=== PATIENT | female | born 1960 | race Caucasian/White ===

== ENCOUNTER 2016-08-03 14:24 | Inpatient (IN) | payer MEDICARE ==
[2016-08-03] MEDS ORDERED: IPRATROPIUM/ALBUTEROL 3 ML VIAL INH ONE (14:47)
[2016-08-03] MEDS ORDERED: SODIUM CHLORIDE 0.9% (FLUSH) 10 ML SYG IV PRN ×2 (14:47→18:26)
--- NOTE | 2016-08-03 14:51 | ED.PDOC ---
History of Present Illness - General Chief Complaint: Respiratory Problem Stated Complaint: ear pain,dental pain,sore throat,cough Time Seen by Provider: 08/03/16 14:47 Source: patient, family Exam Limitations: no limitations - History of Present Illness Initial Comments: PT REPORTS 4-5 DAY HISTORY OF SOB, COUGH, NASAL CONGESTION, EAR PAIN. PT REPORTS COUGH IS PRODUCTIVE OF YELLOW SPUTUM AND REPORTS SUBJECTIVE FEVER. Timing/Duration: days - 4-5 Severity: moderate Activities at Onset: none Possible Cause: frequent episodes, smoke exposure Improving Factors: nothing Worsening Factors: movement Associated Symptoms: cough, fever, wheezing Allergies/Adverse Reactions: Allergies Flu Virus Vaccine Allergy (Mild, Verified 06/26/16 13:02) Rash Levofloxacin [From Levaquin] Allergy (Unknown, Verified 06/26/16 13:02) Home Medications: Ambulatory Orders Aspirin [Aspirin Adult Low Dose] 81 mg PO DAILY 08/03/16 Furosemide [Lasix] 40 mg PO DAILY 08/03/16 Losartan Potassium & Hydrochlo [Losartan Potassium/Hydroc 100-25 mg] 1 tab PO DAILY 08/03/16 Potassium Chloride [Micro-K] 8 meq PO DAILY 08/03/16 Review of Systems - Review of Systems Constitutional: States: chills, fever EENTM: States: ear pain. Denies: throat pain Respiratory: States: see HPI, cough, short of breath, wheezing Cardiology: Denies: chest pain, palpitations Gastrointestinal/Abdominal: Denies: abdominal pain, nausea, vomiting Genitourinary: Denies: discharge, dysuria Musculoskeletal: Denies: back pain, joint pain Skin: Denies: change in color, lesions Neurological: States: no symptoms reported Endocrine: States: no symptoms reported Hematologic/Lymphatic: States: no symptoms reported Past Medical History (General) - Patient Medical History Hx Seizures: No Hx Stroke: Yes Hx Dementia: No Hx Asthma: No Hx of COPD: Yes Hx Cardiac Disorders: No Hx Congestive Heart Failure: Yes Hx Pacemaker: No Hx Hypertension: Yes Hx Thyroid Disease: No Hx Diabetes: No Hx Gastroesophageal Reflux: No Hx Renal Disease: No Hx Cancer: No Hx of HIV: No Hx Hepatitis C: No Hx MRSA: No MRSA Source:: Wound Surgical History: appendectomy, cholecystectomy, Hysterectomy - Vaccination History Hx Tetanus, Diphtheria Vaccination: No Hx Influenza Vaccination: No Hx Pneumococcal Vaccination: No - Social History Hx Tobacco Use: Yes Hx Chewing Tobacco Use: No Hx Alcohol Use: No Hx Substance Use: No Hx Substance Use Treatment: No Hx Depression: No Hx Physical Abuse: No Hx Emotional Abuse: No Hx Suspected Abuse: No - Female History Patient : No Family Medical History - Family History Mother Living Status: Hx Family Hypertension: Yes Hx Family Stroke: Yes Hx Cardiac Disease: Yes Father Family History: No Known Living Status: Hx Family Asthma: No Hx Family Congestive Heart Failure: No Hx Family Hypertension: No Hx Family Stroke: Yes Hx Cardiac Disease: Yes Hx Family;Other: heart attack Physical Exam - Physical Exam General Appearance: Alert, Ill Appearing Eyes, Ears, Nose, Throat Exam: PERRL/EOMI Neck: non-tender, normal inspection Respiratory: respiratory distress - MILD, wheezing Cardiovascular/Chest: regular rate, rhythm, no murmur Gastrointestinal/Abdominal: non tender, soft Extremity: non-tender, pedal edema - 1-2+ B/L LE Neurologic: normal mood/affect, oriented x 3 Skin Exam: warm/dry, pallor Progress - Progress Progress: 08/03/16 16:13 ONLY MINIMAL IMPROVEMENT IN WHEEZING AFTER INITIAL DUONEB. ADDITIONAL DUONEB ORDERED ALONG WITH IV SOLU MEDROL AND IV ZITHROMAX. WILL ADMIT FOR FURTHER TREATMENT. - Results/Orders Results/Orders: Laboratory Tests 08/03/16 15:00 WBC 7.9 RBC 4.44 Hgb 13.3 Hct 40.1 MCV 90.2 MCH 30.0 MCHC 33.2 RDW 14.8 H Plt Count 204 MPV 6.6 L Absolute Neuts (auto) 5.50 Absolute Lymphs (auto) 1.70 Absolute Monos (auto) 0.50 Absolute Eos (auto) 0.20 Absolute Basos (auto) 0.10 Neutrophils % 69.1 Lymphocytes % 21.7 Monocytes % 6.0 Eosinophils % 2.4 Basophils % 0.8 Sodium 135 Potassium 3.2 L Chloride 97 L Carbon Dioxide 32 H Anion Gap 9.2 L BUN 14 Creatinine 0.71 BUN/Creatinine Ratio 19.7 Random Glucose 124 H Serum Osmolality 272.0 L Calcium 9.4 Total Bilirubin 0.6 AST 27 ALT 26 Alkaline Phosphatase 104 B-Natriuretic Peptide 22.7 Serum Total Protein 7.1 Albumin 3.4 Globulin 3.7 H Albumin/Globulin Ratio 0.9 L - EKG/XRAY/CT EKG: Tachy, no ST T wave changes Comments: 105BPM, NL INTERVALS, NL AXIS, NO OLD EKG FOR COMPARISON Departure - Departure Clinical Impression: Acute bronchitis, COPD exacerbation Time of Disposition: 16:16 Disposition: Admit Patient Condition: Fair Departure Forms: ED Discharge - Pt. Copy, Patient Portal Self Enrollment Home Medications: Ambulatory Orders Aspirin [Aspirin Adult Low Dose] 81 mg PO DAILY 08/03/16 Furosemide [Lasix] 40 mg PO DAILY 08/03/16 Losartan Potassium & Hydrochlo [Losartan Potassium/Hydroc 100-25 mg] 1 tab PO DAILY 08/03/16 Potassium Chloride [Micro-K] 8 meq PO DAILY 08/03/16 Decision To Admit - Decistion To Admit Decision to Admit Reason: Admit from ER Decision to Admit Date: 08/03/16 - CASE DISCUSSED WITH THU WAGGONER WHO AGREES TO ADMIT PT. Decision to Admit Time: 16:16
--- NOTE | 2016-08-03 15:23 | RAD ---
EXAM DESCRIPTION: XR CHEST 1 VIEW CLINICAL HISTORY: SOB COMPARISON: 27 June 2016 TECHNIQUE: AP portable chest FINDINGS: The lungs are clear. The heart is within the range of normal. A right shoulder arthroplasty is observed. Exam reveals a anchor in the soft tissues medial to the right proximal humerus. IMPRESSION: Unremarkable portable chest. Electronically signed by: Rigo Oneil MD 08/03/2016 15:22
[2016-08-03] MEDS ORDERED: IPRATROPIUM/ALBUTEROL 3 ML VIAL NEB ONE (15:39)
[2016-08-03] MEDS ORDERED: AZITHROMYCIN IV 500 MG in SODIUM CHLORIDE 0.9% 250ML 250 ML IVPB ONE (15:39)
[2016-08-03] MEDS ORDERED: methylPREDNISolone SODIUM SUC 125 MG/2 ML VIAL IV ONE (15:39)
--- NOTE | 2016-08-03 17:09 | HP ---
SUPERVISING PHYSICIAN: Desmond Mirza M.D. CHIEF COMPLAINT: Worsening shortness of breath, ear and sinus pain. HISTORY OF PRESENT ILLNESS: Ms. Beverly is a 55 year-old female patient that presented to the E. . on date of admission complaining of a 4 to 5 day history of shortness of breath with worsening in the last 24 hours with a productive cough with increasing purulent sputum production with notable nasal congestion and left ear pain. She reports a subjective fever and worsening of her shortness of breath resulting in increasing dyspnea with exertion. The patient does have a history of congestive heart failure and chronic obstructive pulmonary disease. In the Emergency Department, white count was found to be normal with the patient having both inspiratory and expiratory wheezing. Had minimal response with DuoNeb treatments. Given the patient's symptomology with worsening shortness of breath and productive cough, the patient is to be admitted for continued evaluation and treatment for acute exacerbation of chronic obstructive pulmonary disease with bronchitis and concern for early pneumonia. She was admitted in stable condition. PAST MEDICAL HISTORY: 1. Chronic congestive heart failure with last ejection fraction 60% with a diastolic dysfunction noted on 03/2014 as well as pulmonary hypertension. 2. Hypertension. 3. Hepatitis C diagnosed in 2001. 4. Chronic pain. 5. Depression. 6. Chronic obstructive pulmonary disease. PAST SURGICAL HISTORY: 1. Appendectomy. 2. Cholecystectomy. 3. Hysterectomy. 4. Rotator cuff right shoulder. 5. Carpal tunnel repair. CURRENT MEDICATIONS: 1. Aspirin 81 mg daily. 2. Potassium chloride 8 mEq daily. 3. Losartan Hydrochlorothiazide 1 tablet daily. 4. Lasix 40 mg daily. ALLERGIES: FLU VACCINE AND LEVOFLOXACIN. FAMILY HISTORY: Mother is at age 79 from stroke. Father is at age 44 from myocardial infarction. SOCIAL HISTORY: The patient does smoke 1/2 pack a day and has since age 12. She denies any alcohol or illicit drug use. She is currently disabled and , and lives in [place], [place]. REVIEW OF SYSTEMS: CONSTITUTIONAL: Notable for chills and fever. Also noted weight gain of 30 pounds since May. HEENT: Notes left ear pain and sore throat with tooth ache. RESPIRATORY: As noted in History of Present Illness. Cough, shortness of breath and wheezing. CARDIOVASCULAR: Denies any chest pains , palpitations or syncopal episodes. ABDOMEN: Denies any abdominal pain, nausea or vomiting, diarrhea or constipation. GENITOURINARY: Denies any discharges, dysuria or other urinary symptoms. NEUROLOGIC: Denies any headaches , migraines, syncopal episodes or dizziness. PHYSICAL EXAMINATION: VITAL SIGNS: Temperature 99, heart rate 116, blood pressure 185/89, respirations 24, O2 sat showing 97% on room air. Admission weight is 117.9 kg. GENERAL: The patient is alert, appears tired but is in no acute distress. HEENT: Tympanic membranes are clear bilaterally. Oropharynx is pink, moist without any lesions. NECK: There is no jugular venous distention. CHEST: Notable for some mild wheezing throughout more notable on expiratory phase and diminished breath sounds towards the bases. No rhonchi or rales. CARDIOVASCULAR: Regular rate and rhythm without appreciable murmurs, gallops, or rubs. ABDOMEN: Soft, non-tender, obese. Positive bowel sounds. EXTREMITIES: No clubbing or cyanosis. There is some edema noted 1+ bilaterally. NEUROLOGIC: Cranial nerves II-XII are grossly intact. Facial features are symmetric. Extraocular movements are within normal limits. There is no nystagmus. She is alert and oriented times three with no focal motor or sensory deficits. LABORATORY: White count 7.9, hemoglobin 13.3, hematocrit 40.0, platelet count 204,000. Differential was within normal limits. Chemistries show mildly low potassium at 3.2 with carbon dioxide 32, BUN 14, creatinine 0.7, glucose 124. Liver functions all within normal limits. BNP 26.5. Magnesium 1.9. RADIOLOGY: Single view chest x-ray per radiology interpretation shows unremarkable portable chest. ASSESSMENT: 1. Acute exacerbation of chronic obstructive pulmonary disease with acute bronchitis with concerns for early pneumonia likely community acquired. 2. Chronic congestive heart failure with last echocardiogram in 03/2014 showing an ejection fraction of 60% with a diastolic dysfunction. 3. Pulmonary hypertension as demonstrated on echocardiogram performed on 03/2014. 4. Hypertension. 5. Hepatitis C diagnosed in 2001. 6. Chronic pain. 7. Depression. 8. Mild electrolyte imbalance with hypokalemia secondary to diuresis with Lasix. 9. Morbid obesity. 10. Chronic tobacco abuse. PLAN: The patient will be admitted to the hospital for continued treatment and evaluation. She will be started on antibiotics with parenteral antibiotics to include Azithromycin and Rocephin with concerns for early pneumonia and chronic obstructive pulmonary disease exacerbation with a chronic smoker. She was given Solu-Medrol initially in the E. R. 125 mg. This will be continued with 60 every 6 hours for 3 doses. She will be provided aggressive pulmonary hygiene with q.i.d. DuoNeb treatments. She will be started on Mucinex and medications resumed once verified and updated in the computer. Will start her on DVT prophylaxis as per hospital protocol. Will give a dose of Lasix 40 mg in efforts to assist with some of the lower extremity edema, however BNP is normal at this point. Will plan to reevaluate in the morning clinically as well as repeat laboratory studies and obtain a 2 view chest x-ray. Anticipate length of stay to be 2 to 3 days. Until then, will continue to follow the patient closely and treat appropriately. Once the patient is clinically improved and discharged, she can have close clinical followup with Dr. Miranda, her primary care physician. #[id number] [facility]
[2016-08-03] MEDS ORDERED: SODIUM CHLORIDE 0.9% 250ML 250 ML ONE (17:36)
[2016-08-03] MEDS ORDERED: AZITHROMYCIN IV 500 MG VIAL IVPB ONE (17:36)
[2016-08-03] MEDS ORDERED: methylPREDNISolone SODIUM SUC 125 MG/2 ML VIAL ONE (17:38)
[2016-08-03] MEDS ORDERED: WATER FOR INJ 10 ML VIAL INJ ONE (17:40)
[2016-08-03] MEDS ORDERED: ALBUTEROL SULFATE 2.5 MG/3 ML VIAL NEB PRN (18:26)
[2016-08-03] MEDS ORDERED: IV SET AND CAP CHANGE INJ INJ SCH (18:30)
[2016-08-03] MEDS ORDERED: POTASSIUM CHLORIDE 20 MEQ TAB PO ONE (18:33)
[2016-08-03] MEDS ORDERED: FUROSEMIDE INJ 40 MG/4 ML VIAL IV ONE (18:33)
[2016-08-03] MEDS: ACETAMINOPHEN 325 MG TAB PO PRN (19:46)
[2016-08-03] MEDS ORDERED: SODIUM CHL 0.9% 50ML MIN-BAG+ 50 ML IVPB ONE (20:02)
[2016-08-03] MEDS ORDERED: KETOROLAC TROMETHAMINE INJ 30 MG/ML VIAL IV ONE (20:03)
[2016-08-03] MEDS ORDERED: cefTRIAXone SODIUM 1 GM VIAL ONE (20:03)
[2016-08-03] MEDS: cefTRIAXone SODIUM 1 GM in SODIUM CHL 0.9% 50ML MIN-BAG+ 50 ML IVPB SCH (20:09)
[2016-08-03] MEDS: IPRATROPIUM/ALBUTEROL 3 ML VIAL INH SCH (20:16)
[2016-08-03] MEDS: guaiFENesin ER TAB 600 MG TAB PO SCH (20:26)
[2016-08-03] MEDS: methylPREDNISolone SODIUM SUC 125 MG/2 ML VIAL IV SCH (22:03)
--- NOTE | 2016-08-03 22:20 | PCM.CORE ---
Physician DVT/VTE - Nurse DVT Assessment & Total Each Risk Factor Represents 1 Point: Hx of smoking past year Each Risk Factor is 1 Point: Varicose Veins/Edema Legs, Obesity (BMI >25), Serious Lung disease (pnemonia <1month, COPD, emphysema,etc) DVT Assessment Score: 4 - 3-4 High Risk Treatments: Early Ambulation *, Sequential Compression Device Pharmacological: Enoxaparin 40 mg SQ Daily
[2016-08-04] MEDS: ACETAMINOPHEN 325 MG TAB PO PRN ×2 (01:44→08:46)
[2016-08-04] MEDS: methylPREDNISolone SODIUM SUC 125 MG/2 ML VIAL IV SCH ×2 (04:07→10:31)
--- NOTE | 2016-08-04 07:27 | RAD ---
EXAM DESCRIPTION: XR CHEST 1 VIEW CLINICAL HISTORY: Pneumonia COMPARISON: 08/03/2016 TECHNIQUE: Single-view chest FINDINGS: Heart size is normal. Lungs are clear. No acute osseous injury. IMPRESSION: No acute chest process Electronically signed by: Erich Ascencio MD 08/04/2016 07:26
[2016-08-04] MEDS: IPRATROPIUM/ALBUTEROL 3 ML VIAL INH SCH ×4 (08:11→20:13)
[2016-08-04] MEDS ORDERED: NON-FORMULARY MEDICATION 1 EA MIS (Losartan Potassium & Hydrochlo [Losartan Potassium/Hydr PO SCH (09:00)
[2016-08-04] MEDS ORDERED: SODIUM CHLORIDE 0.9% (FLUSH) 10 ML SYG IV SCH (09:00)
[2016-08-04] MEDS: guaiFENesin ER TAB 600 MG TAB PO SCH ×2 (09:17→20:38)
[2016-08-04] MEDS: ASPIRIN EC 81 MG TAB PO SCH (09:17)
[2016-08-04] MEDS: hydroCHLOROthiazide 25 MG TAB PO SCH (09:20)
[2016-08-04] MEDS: LOSARTAN POTASSIUM 100 MG TAB PO SCH (09:20)
[2016-08-04] MEDS ORDERED: cloNIDine HCL 0.2 MG TAB PO ONE (10:28)
[2016-08-04] MEDS ORDERED: HYDROcodone 10MG/APAP 325MG 1 EA TAB PO ONE (10:29)
[2016-08-04] MEDS ORDERED: KETOROLAC TROMETHAMINE INJ 30 MG/ML VIAL IV ONE (10:29)
[2016-08-04] MEDS: ENOXAPARIN SODIUM 40 MG/0.4 ML SYG SUBCU SCH (10:30)
[2016-08-04] MEDS ORDERED: LISINOPRIL 5 MG TAB PO SCH (10:30)
[2016-08-04] MEDS: KCL 20 MEQ/NS 1,000 ML IVS PRN (10:40)
[2016-08-04] MEDS ORDERED: SODIUM CHLORIDE 0.9% 250ML 250 ML ONE (14:46)
[2016-08-04] MEDS ORDERED: AZITHROMYCIN IV 500 MG VIAL IVPB ONE (14:47)
[2016-08-04] MEDS ORDERED: AZITHROMYCIN IV 500 MG in SODIUM CHLORIDE 0.9% 250ML 250 ML IVPB SCH (15:00)
[2016-08-04] MEDS ORDERED: SODIUM CHL 0.9% 50ML MIN-BAG+ 50 ML IVPB ONE (18:10)
[2016-08-04] MEDS ORDERED: cefTRIAXone SODIUM 1 GM VIAL ONE (18:10)
[2016-08-04] MEDS: cefTRIAXone SODIUM 1 GM in SODIUM CHL 0.9% 50ML MIN-BAG+ 50 ML IVPB SCH (18:43)
--- NOTE | 2016-08-04 19:45 | PN ---
DATE: 08/04/16 SUPERVISING PHYSICIAN: Desmond Mirza M.D. SUBJECTIVE: The patient is feeling a little better this morning but she has been complaining of a headache and left sided ear and jaw pain. She does remain afebrile and has had no nausea, vomiting or diarrhea. OBJECTIVE: VITAL SIGNS: Temperature 98.4, pulse 99, blood pressure 161/79, respirations showing 93% on room air at rest. I's and O's show a positive balance of 25 with 1075 in, 1050 out. HEENT: The patient has some pain overlying the left temporomandibular joint. Tympanic membrane on the left ear remains without any obvious bulging or erythema or drainage. Oropharynx remains pink without any obvious lesions or swelling of the posterior tonsils. CHEST: Lung sounds are diminished towards the bases. No obvious wheezing today. There is some mild crackles heard in bilateral bases. HEART: Regular rate and rhythm with no gallops, rubs or murmurs noted. ABDOMEN: Obese but soft , non-tender. Positive bowel sounds. EXTREMITIES: No clubbing or cyanosis. There is trace edema bilaterally today to the lower extremities. NEUROLOGIC: She is alert and oriented times three. LABORATORY: White count remains normal at 8.9, hemoglobin 14.2, hematocrit 43.8 , platelet count 232,000. Differential shows left shift. The patient has been started on Solu-Medrol today. Sodium is mildly increased to 133 with potassium being normal at 4.4, BUN 24, creatinine 0.8, serum osmolality 273, calcium 10.1. MICROBIOLOGY: Sputum culture is pending. RADIOLOGY: Repeat two view chest x-ray this morning per radiology interpretation continues to show no acute process. ASSESSMENT: 1. Acute exacerbation of chronic obstructive pulmonary disease with acute bronchitis with still concerns for early pneumonia being likely community acquired with the patient now producing sputum with sputum cultures pending. 2. Chronic congestive heart failure with last echocardiogram in 03/2014 showing ejection fraction fo 60% with diastolic dysfunction. 3. Pulmonary hypertension as demonstrated on echocardiogram in 03/2014. 4. Hypertension. 5. Hepatitis C diagnosed in 2001. 6. Chronic pain. 7. Depression. 8. Mild electrolyte imbalance initially with hypokalemia resolved after IV fluids and additional diuresis. 9. Morbid obesity. 10. Chronic tobacco abuse. 11. Acute rhinosinusitis with bilateral maxillary pressure and discomfort with the patient being on Rocephin and Azithromycin. 12. Temporomandibular joint syndrome secondary to poor dentition and persistent grinding of teeth during sleep. PLAN: The patient last week continue with parenteral antibiotics today to include Azithromycin and Rocephin. In regards to the TMJ discomfort on the left , the patient does have a notable grinding of teeth persistently. She notes that this has been something chronic for her. Will treat with Toradol. In regards to the blood pressure, will try some Clonidine as well as pain control. Will continue with aggressive pulmonary hygiene including DuoNeb treatments q.i.d. Will plan to reevaluate laboratory studies in the morning. Anticipate possible discharge tomorrow or Sunday pending clinical improvement. Until then , will monitor the patient closely and treat appropriately. #[id number] [facility]
[2016-08-04] MEDS: HYDROcodone/IBUPROFEN 7.5/200 1 EA TAB PO PRN (20:20)
[2016-08-04] MEDS: amLODIPine BESYLATE 5 MG TAB PO SCH (20:20)
[2016-08-05] MEDS: KCL 20 MEQ/NS 1,000 ML IVS PRN (02:06)
[2016-08-05] MEDS: HYDROcodone/IBUPROFEN 7.5/200 1 EA TAB PO PRN (05:36)
[2016-08-05] MEDS: IPRATROPIUM/ALBUTEROL 3 ML VIAL INH SCH ×2 (08:38→11:42)
[2016-08-05 08:45] VITALS: TEMP 98.8
[2016-08-05] MEDS: ENOXAPARIN SODIUM 40 MG/0.4 ML SYG SUBCU SCH (08:49)
[2016-08-05] MEDS: guaiFENesin ER TAB 600 MG TAB PO SCH (08:49)
[2016-08-05] MEDS: amLODIPine BESYLATE 5 MG TAB PO SCH (08:49)
[2016-08-05] MEDS: hydroCHLOROthiazide 25 MG TAB PO SCH (08:49)
[2016-08-05] MEDS: ASPIRIN EC 81 MG TAB PO SCH (08:49)
[2016-08-05] MEDS: LOSARTAN POTASSIUM 100 MG TAB PO SCH (08:51)
[2016-08-05 10:27] VITALS: BP 161/95
[2016-08-05 11:42] VITALS: O2SAT 97
--- NOTE | 2016-08-12 22:05 | DS ---
SUPERVISING PHYSICIAN: Desmond Mirza M.D. DISCHARGE DIAGNOSIS: 1. Acute exacerbation of chronic obstructive pulmonary disease with acute bronchitis with concerns for early pneumonia being likely community acquired with the patient having producing sputum and sputum cultures on discharge showing Klebsiella pneumoniae sensitive to all but Ampicillin. 2. Chronic congestive heart failure with last echocardiogram in 03/2014 showing ejection fraction fo 60% with diastolic dysfunction. 3. Pulmonary hypertension as demonstrated on echocardiogram in 03/2014. 4. Hypertension. 5. Hepatitis C diagnosed in 2001. 6. Chronic pain. 7. Depression. 8. Mild electrolyte imbalance initially with hypokalemia resolved after IV fluids and additional diuresis. 9. Morbid obesity. 10. Chronic tobacco abuse. 11. Acute rhinosinusitis with bilateral maxillary pressure and discomfort with the patient being on Rocephin and Azithromycin with sputum cultures again showing Klebsiella pneumoniae possibly contributing to the acute rhinosinusitis. 12. Temporomandibular joint syndrome secondary to poor dentition and persistent teeth grinding during sleep exacerbated by upper respiratory infection and acute sinusitis. HISTORY OF PRESENT ILLNESS: Ms. Beverly is a 55 year-old female that presented to the Emergency Department on 08/03/16 complaining of a 4 to 5 day history of shortness of breath with worsening in the last 24 hours prior to admission with a productive cough that was increasing and purulent in nature with notable nasal congestion and left ear pain. She notes a subjective fever and worsening of her shortness of breath resulting in increasing dyspnea with exertion. The patient does have a history of congestive heart failure and chronic obstructive pulmonary disease, and currently smokes. In the Emergency Department, white count was found to be normal with the patient having both inspiratory and expiratory wheezing. She had minimal response to DuoNeb treatments. Given the patient's symptomology with worsening shortness of breath and productive cough, the patient was admitted for continued evaluation and treatment for acute exacerbation of chronic obstructive pulmonary disease with bronchitis and concern for early pneumonia. She was admitted in stable condition. LABORATORY: White count on admission was 7.9. She was showing an elevation of white count at time of discharge at 13.7 having been started on Solu-Medrol. Hemoglobin and hematocrit were stable and at discharge were 13.2 and 41.0. Platelet count was 223,000. Differential showed a left shift after admission, however the patient again was started on Solu-Medrol. Chemistries showed potassium 3.2 on admission, after treatment had normalized, at discharge was 4.4. She did have a slightly low sodium of 132 with BUN 22 and creatinine 0.76 felt to be secondary to diuresis through admission. Calcium was normal at 9.2, magnesium was normal at 1.9. Liver functions all were within normal limits. BNP at 26.5. Urine on admission showed to be within normal limits. MICROBIOLOGY: Sputum culture was submitted and was sensitive to everything but Ampicillin. Final species was Klebsiella pneumoniae. RADIOLOGY: A chest x-ray in the Emergency Department prior to admission to the Medical/Surgical floor per radiology interpretation showed unremarkable portable chest. A repeat chest x-ray was performed on 08/04 and again per radiology interpretation showed no acute chest process. No additional radiographic studies were completed. She did have an EKG initially in the Emergency Department that shows a sinus tachycardia, otherwise was normal sinus rhythm. HOSPITAL COURSE: Ms. Beverly was admitted from the . as noted for early development of pneumonia with acute bronchitis and exacerbation of her chronic obstructive pulmonary disease. She was given breathing treatments in the Emergency Department and admitted to the floor, and was started on aggressive pulmonary hygiene. She was also given Lasix to help diurese off and then fluid management consisting of IV fluids and p.o. fluids which showed a good balance. At discharge, she was showing a positive balance of 1472. She had 1 bowel movement. Her vital signs are stable. She was satting 97% on room air with blood pressure slightly elevated at 161/95 with best pressure being 131/81 with a heart rate of 94. She was started on parenteral antibiotics and aggressive pulmonary hygiene with antibiotics to include Rocephin and Azithromycin. She was also started on steroids initially for shortness of breath which improved her respiratory effort. She remained stable. She was felt well enough to be discharged on date of discharge to continue with treatment in the outpatient setting. PLAN: Ms. Beverly was discharged on 08/05/16 to continue with outpatient treatment plan and to have close clinical followup with her primary care provider, Dr. Miranda, in 7 to 10 days. She was instructed that she would need an echocardiogram that would be arranged through Dr. Miranda's office. She was instructed to keep a blood pressure log daily and bring it with her to her followup appointment along with all of the prescription bottles. She is limit her daily fluids to less than 1800 mL per day and to weigh daily and report any gaining weight of more than 3 pounds in a [address] Miranda. She was encouraged to limit her salt in her diet and to stop smoking. She is to go to the dentist to help with dental problems and to resume all previous medications as well as start new prescriptions as prescribed. She was encouraged to increase her activities to help with weight loss and improve her lung function. She was told to return to the hospital should she have no improvement or worsening of her symptoms. On discharge, new prescriptions included: 1. Diflucan 150 mg ever 72 hours, 2 tablets. 2. Guaifenesin 600 mg twice daily, #20. 3. Nasonex 50 mcg nasal spray 2 sprays daily each nostril, 1 bottle. 4. Norvasc 5 mg daily, #30. 5. Cefdinir 300 mg twice daily, #20. 6. Prednisone tapering pack 10 mg tablets, 4 tablets times 1 day, 3 tablets times 1 day, 2 tablets times 1 day and then 1 tablet until all gone. 7. Albuterol nebulizer 2.5 mg per 3 mL as needed every 4 hours, #30. 8. Azithromycin 250 mg tablets, #4. She was discharged in stable condition. #[id number] [facility]
== END 2016-08-05 12:45 | disposition home or self-care (01) | DRG 190 ==
LOC: ER 14:24 → MS 17:08
PROVIDERS: ADMIT Nurse Practitioner Family; ATTEND Nurse Practitioner Family
DX: J44.0 Chronic obstructive pulmonary disease with (acute) lower respiratory infection (principal); J18.9 Pneumonia, unspecified organism; I50.32 Chronic diastolic (congestive) heart failure; J44.1 Chronic obstructive pulmonary disease with (acute) exacerbation; I11.0 Hypertensive heart disease with heart failure; I27.2 Other secondary pulmonary hypertension; B18.2 Chronic viral hepatitis C; G89.29 Other chronic pain; F32.9 Major depressive disorder, single episode, unspecified; E87.6 Hypokalemia; E66.01 Morbid (severe) obesity due to excess calories; F17.210 Nicotine dependence, cigarettes, uncomplicated; J01.00 Acute maxillary sinusitis, unspecified; M26.622 Arthralgia of left temporomandibular joint; Z79.82 Long term (current) use of aspirin; Z79.899 Other long term (current) drug therapy; Z86.73 Personal history of transient ischemic attack (TIA), and cerebral infarction without residual deficits; Z88.7 Allergy status to serum and vaccine; Z88.1 Allergy status to other antibiotic agents; B96.1 Klebsiella pneumoniae [K. pneumoniae] as the cause of diseases classified elsewhere

== ENCOUNTER → 2016-08-21 | Outpatient (CLI) | payer MEDICARE | LOC: GMAM 15:17 | PROVIDERS: ATTEND Family Medicine | DX: I50.22 Chronic systolic (congestive) heart failure (principal) ==

== ENCOUNTER → 2016-09-11 | Outpatient (CLI) | payer MEDICARE ==
--- NOTE | 2016-09-11 10:33 | US ---
EXAM DESCRIPTION: US THYROID CLINICAL HISTORY: 56 y/o F, THYROID NODULE COMPARISON: None. FINDINGS: The right thyroid lobe measures 3.3 cm in length. It contains a 2.9 cm solid nodule in its mid pole with a tiny central calcification. The thyroid isthmus measures 4 or 5 mm AP diameter. The left thyroid lobe measures 3.7 cm in length. It contains a 4 mm hypoechoic nodule in its mid pole which is either solid or complex cystic. No additional nodules seen in either thyroid lobe. No color Doppler images were obtained. IMPRESSION: 2.9 cm solid nodule in the mid right thyroid lobe with a tiny central calcification. Ultrasound-guided biopsy should be considered. 4 mm complex cystic or solid nodule in the mid left thyroid lobe. Followup ultrasound and 9 a 12 months is recommended to document stability of this finding. Electronically signed by: Jeyson Fox DO 09/11/2016 10:31
== END | disposition home or self-care (01) ==
LOC: US 09:00
PROVIDERS: ATTEND Family Medicine
DX: J44.9 Chronic obstructive pulmonary disease, unspecified (principal)

== ENCOUNTER → 2017-01-12 | Outpatient (CLI) | payer MEDICARE ==
--- NOTE | 2017-01-14 13:15 | RAD ---
EXAM DESCRIPTION: Shoulder,Left 2 or More Views CLINICAL HISTORY: 56 yearsFemale, LEFT SHOULDER PAIN COMPARISON: None. IMPRESSION: There is no evidence of acute fracture, dislocation, or destructive osseous lesion. There is narrowing of the subacromial space suggesting rotator cuff pathology. Recommend MRI for further evaluation. Mild to moderate acromioclavicular osteoarthritis is present. There are also mild glenohumeral degenerative changes. Emphysematous changes in the left lung apex. Calcific plaque in the thoracic aorta. Electronically signed by: Jag Wheat MD 01/14/2017 1:14 PM CDT Workstation: [id number]
== END ==
LOC: RAD 07:39
PROVIDERS: ATTEND Orthopaedic Surgery
DX: M25.512 Pain in left shoulder (principal)

== ENCOUNTER → 2017-04-13 | Outpatient (CLI) | payer MEDICARE ==
--- NOTE | 2017-04-14 17:48 | MRI ---
Procedure: MR SHOULDER WITHOUT IV CONTRAST Exam Date: 04/13/2017 12:00 AM CDT Ordering Provider: CHELSEA TORREZ MD Clinical Indication: ROTATOR CUFF SYNDROME Comparison: None TECHNIQUE: Multiplanar, multi sequence MRI images of the left shoulder were obtained without intra-articular contrast. FINDINGS: Chronic full-thickness fullwidth retracted supraspinatus tendon tear. Tendon is retracted to the level of the superior labrum. There is partial tearing of the anterior leading edge infraspinatus is well yet the majority of the tendon is intact. Teres minor and subscapularis tendons are intact. There is chronic atrophy of the supraspinatus muscle belly with fatty infiltration or volumetric atrophy. There is also volumetric atrophy of the subscapularis muscle belly. Long head of the biceps is well situated within the intertubercular groove. Biceps labral anchor is intact. Labrum is intact. Mild degenerative changes of the acromioclavicular joint. Small amount of fluid seen within the subdeltoid bursa secondary to chronic full-thickness rotator cuff tear. Fluid also communicates in the subcoracoid bursa. Type 2 acromion is noted. Severe glenohumeral joint osteoarthrosis with broad regions of full-thickness chondrosis and subchondral cysts and edema within the glenoid as well as subchondral humeral head. There is flattening and sclerosis with serpiginous fluid signal seen along the posterior superior humeral head compatible with a component of avascular necrosis. IMPRESSION: 1. Chronic full-thickness, fullwidth retracted supraspinatus tendon tear with atrophy of the supraspinous muscle. There is also partial involvement of the anterior leading edge infraspinatus. 2. Severe glenohumeral joint osteoarthrosis with AVN of the humeral head posteriorly. 2. Mild AC joint osteoarthrosis. Electronically signed by: Alfredo Sharif MD 04/14/2017 5:47 PM CDT
== END | disposition home or self-care (01) ==
LOC: MRI 08:55
PROVIDERS: ATTEND Orthopaedic Surgery
DX: M75.102 Unspecified rotator cuff tear or rupture of left shoulder, not specified as traumatic (principal); X58.XXXA Exposure to other specified factors, initial encounter

== ENCOUNTER 2017-08-26 13:29 | Emergency (ER) | payer MEDICARE ==
[2017-08-26 13:52] VITALS: TEMP 98.4
[2017-08-26] MEDS ORDERED: cloNIDine HCL 0.1 MG TAB PO ONE (14:03)
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
--- NOTE | 2017-08-26 14:36 | RAD ---
EXAM: Chest,1 View CLINICAL INDICATION: 56-year-old female with cough. TECHNIQUE: Single view, AP portable chest was obtained. COMPARISON: Single view chest 08/04/2016. FINDINGS: Stable cardiac and mediastinal silhouette. Heart size is normal. Tortuous atherosclerotic thoracic aorta. Lungs are clear without focal opacity, pneumothorax or pleural effusions. The visualized bones are within normal limits. RIGHT shoulder arthroplasty in gross anatomic alignment. IMPRESSION: No acute cardiopulmonary abnormalities. Electronically signed by: Molly Quiles MD 08/26/2017 2:36 PM [facility]
[2017-08-26 15:36] VITALS: BP 153/95; O2SAT 94
== END 2017-08-26 15:36 | disposition home or self-care (01) ==
LOC: ER 13:29
DX: K52.9 Noninfective gastroenteritis and colitis, unspecified (principal); B34.9 Viral infection, unspecified; I10 Essential (primary) hypertension; Z87.891 Personal history of nicotine dependence; J44.9 Chronic obstructive pulmonary disease, unspecified; Z86.73 Personal history of transient ischemic attack (TIA), and cerebral infarction without residual deficits